=== PATIENT | male | born 1965 | race American Indian/Alaskan Native ===

== ENCOUNTER 2022-09-21 21:04 | Emergency (ER) | payer OTHER ==
[2022-09-21] MEDS ORDERED: Acetaminophen/HYDROcodone 325-10 MG Tab PO ONE (21:18)
[2022-09-21] MEDS ORDERED: Orphenadrine 60 MG/2 ML Inj IM ONE (21:18)
== END 2022-09-21 21:41 | disposition home or self-care (01) ==
LOC: DL.ED 21:04
DX: S46.912A Strain of unspecified muscle, fascia and tendon at shoulder and upper arm level, left arm, initial encounter (principal); Z88.1 Allergy status to other antibiotic agents; X58.XXXA Exposure to other specified factors, initial encounter
CPT/HCPCS: 96372; 99282; 99283; A9270-GY; J2360